=== PATIENT | female | born 2000 | race Caucasian/White ===

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

== ENCOUNTER 2024-02-14 02:47 | Emergency (ER) | payer BC ==
[2024-02-14] MEDS ORDERED: CEFTRIAXONE 1000 MG/VIAL ONE (03:54)
[2024-02-14] MEDS ORDERED: ACETAMINOPHEN 500 MG TAB ONE (03:55)
[2024-02-14] MEDS ORDERED: NA CHLORIDE 0.9% 1,000 ML ONE (03:55)
[2024-02-14] MEDS ORDERED: ONDANSETRON 4 MG/2 ML VIAL ONE (04:27)
[2024-02-14] MEDS ORDERED: MORPHINE 4 MG/ML SYR ONE (04:28)
[2024-02-14 04:56] LABS: Absolute Eosinophils 0.1 K/uL (0-0.5); Absolute Lymphocytes (CBC) 0.3 K/uL (0.7-4.9); Absolute Monocytes 0.8 K/uL (0.1-1.3); Absolute Neutrophil 4.4 K/uL (1.8-8.0); Basophils % 0.8 % (0-1.3); Eosinophils % 1.9 % (0-4.4); Hematocrit 37.3 % (36.0-45.0); Hemoglobin 12.2 g/dL (12.0-15.0); Lymphocytes % 5.7 % (15.3-44.8); MCH 28.3 pg (27.0-35.0); MCHC 32.8 g/dL (32.0-36.0); MCV 86.3 fL (80-100); MPV 8.5 fL (7.6-11.3); Monocytes % 13.9 % (3.3-12.3); Neutrophils % 77.7 % (41.7-73.7); Platelets 216 thou/uL (152-406); RBC Red Blood Cell Count 4.33 M/uL (3.86-4.86); Red Cell Distribution Width 13.3 % (12.1-15.2)
[2024-02-14 04:59] LABS: PT Prothrombin Time 13.2 SECONDS (9.5-12.5); PTT, Activated Partial Thromb 32.5 SECONDS (24.3-36.9); Protime INR 1.21
[2024-02-14 05:05] LABS: Specific Gravity 1.015 (1.005-1.030); Sqamous Epithelial <5 /HPF (None Seen); Urine Bacteria None Seen /HPF (<20); Urine Bilirubin NEGATIVE (Negative); Urine Blood Negative (Negative); Urine Clarity Clear (Clear); Urine Color Light-Yellow (Yellow); Urine Culture Reflex Order NOT NEEDED; Urine Glucose NEGATIVE (Negative); Urine Ketones NEGATIVE (Negative); Urine Microscopic Reflex YN ORDER UMIC; Urine Mucus Slight /HPF (None Seen); Urine Nitrite NEGATIVE (Negative); Urine Protein NEGATIVE (Negative); Urine RBC <5 /HPF (None Seen); Urine Urobilinogen Normal (Normal); Urine WBC <5 /HPF (<5)
[2024-02-14 05:18] LABS: ALT/SGPT 18 U/L (13-56); Albumin 3.6 g/dL (3.4-5.0); Albumin/Globulin Ratio 1.1 (1.1-1.8); Alkaline Phosphatase 55 U/L (45-117); Anion Gap 10.5 mEq/L (5.0-15.0); BUN Blood Urea Nitrogen 13 mg/dL (7-18); Bicarbonate 24 mEq/L (21-32); Bilirubin Total 0.5 mg/dL (0.2-1.0); Globulin 3.4 g/dL (2.3-3.5); Glomerular Filtration Rate 93 ml/min (=/>90); Glucose Level 109 mg/dL (74-106); Potassium 3.5 mEq/L (3.5-5.1); Sodium Level 136 mEq/L (136-145)
[2024-02-14 05:22] LABS: AST/SGOT < 10 U/L (15-37)
--- NOTE | 2024-02-14 05:47 | EDPHYS ---
Physician Documentation [facility] Name: Curt Delgado Age: 23 yrs Sex: Female : 2000 Arrival Date: 02/14/2024 Time: 02:47 Bed 2 Private MD: ED Physician Jonathan Walls HPI: 02/13 04:11 This 23 yrs old Female presents to ER via Ambulatory with complaints of Low ec2 Back Pain, Fever. 04:11 Patient arrives today for evaluation of lower back pain as well as fever. Patient ec2 reports that she has been experiencing fever since this afternoon. Patient reports some nausea, no vomiting. Denies any periods abdominal surgeries, denies any previous cough or cold symptoms, no urinary complaints.. 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 - Infectious Disease History:: Denies. - Social history:: Smoking status: Patient denies any tobacco usage or history of. ROS: 04:11 Constitutional: as per hpi ec2 Exam: 04:11 Constitutional: GEN: NAD Head: atraumatic Eyes: EOMI Ears: External ears are ec2 normal. CV: Tachycardia LUNGS: no respiratory distress ABD: non-distended, soft, nontender, no guarding, not rigid, negative flanks bilaterally. SKIN: no evidence of rashes MSK: no evidence of trauma NEURO: moves all extremities equally Vital Signs: 03:35 BP 114 / 72; Pulse 100; Resp 18; Temp 100.6; Pulse Ox 98% ; Weight 62.6 kg; Height 5 bm8 ft. 0 in. ; Pain 7/10; 04:30 BP 102 / 59; Pulse 80; ec2 04:42 BP 111 / 70; Pulse 86; Resp 15; Pulse Ox 96% on R/A; kd3 04:58 BP 111 / 65; Pulse 73; Resp 16; Temp 98.7; Pulse Ox 98% ; Pain 0/10; bm8 06:04 BP 110 / 59; Pulse 75; Resp 17; Temp 98.7; Pulse Ox 98% ; Pain 2/10; bm8 03:35 Body Mass Index 26.95 (62.60 kg, 152.4 cm) bm8 03:35 Pain Scale: Adult bm8 04:58 Pain Scale: Adult bm8 06:04 Pain Scale: Adult bm8 Elsy Coma Score: 06:04 Eye Response: spontaneous(4). Motor Response: obeys commands(6). Verbal Response: bm8 oriented(5). Total: 15. MDM: 03:12 Patient medically screened. ec2 04:11 Data reviewed: vital signs. ED course: Patient arrives today for evaluation of low back ec2 pain and fever. Examination remarkable for well-appearing nontoxic and appears otherwise in no acute distress with slight tachycardia as well as fever appreciated. Will obtain septic workup, empirically treat with ceftriaxone for urinary tract pathology. Differential diagnosis include UTI, pyelonephritis, appendicitis. Will also obtain CT imaging.. 04:30 ED course: On reassessment patient with improvement in her tachycardia.. ec2 05:08 ED course: Urine is noninfectious appearing, negative for .. ec2 05:26 ED course: Metabolic profile is reassuring, lactic is undetectable. Pending CT imaging. ec2 . 05:35 ED course: On reassessment patient with marked improvement in pain.. ec2 05:45 ED course: CT imaging shows nonspecific enteritis. On reassessment patient is ec2 comfortable and well-appearing no acute distress. Will discharge home. Return precautions given.. 02/13 03:39 Order name: Blood Culture Adult (2) ec2 02/13 03:39 Order name: CBC with Diff; Complete Time: 05:17 ec2 02/13 03:39 Order name: CMP; Complete Time: 05:26 ec2 02/13 03:39 Order name: Lactate w/ 2H reflex if indic.; Complete Time: 05:26 ec2 02/13 03:39 Order name: Protime (+inr); Complete Time: 05:01 ec2 02/13 03:39 Order name: Ptt, Activated; Complete Time: 05:01 ec2 02/13 03:39 Order name: Urinalysis w/ reflexes; Complete Time: 05:08 ec2 02/13 03:39 Order name: Test, Urine; Complete Time: 05:08 ec2 02/13 04:11 Order name: CT Abd/Pelvis - Without Contrast 2 02/13 03:39 Order name: Accucheck; Complete Time: 03:46 02/13 03:39 Order name: Cardiac monitoring; Complete Time: 03:46 02/13 03:39 Order name: EKG - Nurse/Tech; Complete Time: 03:46 02/13 03:39 Order name: IV Saline Lock - Large Bore; Complete Time: 03:46 02/13 03:39 Order name: Labs collected and sent; Complete Time: 03:46 02/13 03:39 Order name: O2 Per Protocol; Complete Time: 03:46 02/13 03:39 Order name: O2 Sat Monitoring; Complete Time: 03:46 02/13 03:39 Order name: Vital Signs; Complete Time: 03:46 Administered Medications: 03:59 Drug: Acetaminophen PO 1000 mg PO once Route: PO; bm8 04:58 Follow up: Response: No adverse reaction bm8 03:59 Drug: NS 0.9% IV 1000 ml IV at 1 bolus Per protocol; 1000 mL bolus Route: IV; Rate: 1 bm8 bolus; Site: right antecubital; 04:57 Follow up: Response: No adverse reaction; IV Status: Completed infusion; IV Intake: bm8 1000ml 04:34 Drug: Ondansetron IVP 4 mg IVP once; over 2 minutes Route: IVP; Site: right antecubital;kd3 04:57 Follow up: Response: No adverse reaction bm8 04:35 Drug: Rocephin IV 1 grams IV at calculated rate once; Given slow IV push per pharmacy kd3 instructions Route: IV; Rate: calculated rate; Site: left antecubital; 04:57 Follow up: Response: No adverse reaction; IV Status: Completed infusion; IV Intake: [id number] 04:35 Drug: morphine IVP or IV 4 mg IVP once over 4 mins Route: IVP; Infused Over: 4 mins; kd3 Site: left antecubital; 04:57 Follow up: Response: No adverse reaction bm8 06:04 Drug: HYDROcodone-acetaminophen PO 5 mg-325 mg 1 tabs PO once Route: PO; bm8 06:04 Follow up: Response: Medication administered at discharge. bm8 Disposition Summary: 02/14/24 05:46 Discharge Ordered Notes: Location: Home ec2 Condition: Stable ec2 Diagnosis - Other viral enteritis ec2 Followup: ec2 - With: Private Physician - When: - Reason: Re-evaluation by your physician Discharge Instructions: - Discharge Summary Sheet ec2 - Viral Gastroenteritis, Adult, [id number] ec2 Forms: - Work release form ec2 - Medication Reconciliation Form ec2 - Antibiotic Education ec2 - Prescription Opioid Use ec2 - Patient Portal Instructions ec2 - Leadership Thank You Letter ec2 Prescriptions: - Zofran 4 mg Oral Tablet - take 1 tablet ORAL route every 12 hours As needed; 20 tablet; Refills: 0, ec2 Product Selection Permitted - dicyclomine 10 mg Oral capsule - take 1 capsule ORAL route 3 times per day; 30 capsule; Refills: 0, Product ec2 Selection Permitted Signatures: Dispatcher [employer] Marilyn Maria, RN RN kd3 Jonathan Walls MD MD ec2 Jonathan Enamorado RN RN bm8 Corrections: (The following items were deleted from the chart) 03:39 03:39 BLOOD CULTURE*+BA.LAB.BRZ ordered. EDMS EDMS 03:39 03:39 CBC+H.LAB.BRZ ordered. EDMS EDMS 03:39 03:39 COMPREHENSIVE METABOLIC PANEL+C.LAB.BRZ ordered. EDMS EDMS 03:39 03:39 LACTATE+C.LAB.BRZ ordered. EDMS EDMS 03:39 03:39 PROTIME (+INR)+COAG.LAB.BRZ ordered. EDMS EDMS 03:39 03:39 PTT, ACTIVATED+COAG.LAB.BRZ ordered. EDMS EDMS 03:39 03:39 Urinalysis+U.LAB.BRZ ordered. EDMS EDMS 03:39 03:39 Test, Urine+UC.LAB.BRZ ordered. EDMS EDMS 04:11 04:11 Abdomen Pelvis Wo Con+CT.RAD.BRZ ordered. EDMS EDMS
--- NOTE | 2024-02-14 05:47 | ER ---
Nurse's Notes [facility] Name: Curt Delgado Age: 23 yrs Sex: Female : 2000 Arrival Date: 02/14/2024 Time: 02:47 Bed 2 Private MD: Diagnosis: Other viral enteritis Presentation: 02/13 03:35 Chief complaint: Patient states: I have lower back that started around 1230 this bm8 afternoon, now i have fever and headache. Coronavirus screen: Vaccine status: Patient reports receiving the 2nd dose of the covid vaccine. Ebola Screen: Patient negative for fever greater than or equal to 101.5 degrees Fahrenheit, and additional compatible Ebola Virus Disease symptoms Patient denies exposure to infectious person. Patient denies travel to an Ebola-affected area in the 21 days before illness onset. No symptoms or risks identified at this time. Initial Sepsis Screen: Does the patient meet any 2 criteria? No. Patient's initial sepsis screen is negative. Does the patient have a suspected source of infection? No. Patient's initial sepsis screen is negative. Risk Assessment: Do you want to hurt yourself or someone else? Patient reports no desire to harm self or others. Onset of symptoms was February 13, 2024 at 12:30. 03:35 Method Of Arrival: Ambulatory bm8 03:35 Acuity: LEODAN 3 bm8 Triage Assessment: 03:41 General: Appears in no apparent distress. comfortable, Behavior is calm, cooperative. bm8 Pain: Complains of pain in lower back Pain does not radiate. EENT: No deficits noted. No signs and/or symptoms were reported regarding the EENT system. Neuro: No deficits noted. Level of Consciousness is awake, alert, obeys commands, Oriented to person, place, time, situation. Cardiovascular: No deficits noted. Capillary refill < 3 seconds Patient's skin is warm and dry. Respiratory: Airway is patent Trachea midline Respiratory effort is even, unlabored, Respiratory pattern is regular, symmetrical, Breath sounds are clear bilaterally. GI: No deficits noted. No signs and/or symptoms were reported involving the gastrointestinal system. : No signs and/or symptoms were reported regarding the genitourinary system. Derm: No signs and/or symptoms reported regarding the dermatologic system. Musculoskeletal: No signs and/or symptoms reported regarding the musculoskeletal system. 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 - Infectious Disease History:: Denies. - Social history:: Smoking status: Patient denies any tobacco usage or history of. Screenin:44 [facility] ED Fall Risk Assessment (Adult) History of falling in the last 3 months, bm8 including since admission No falls in past 3 months (0 pts) Confusion or Disorientation No (0 pts) Intoxicated or Sedated No (0 pts) Impaired Gait No (0 pts) Mobility Assist Device Used No (0 pt) Altered Elimination No (0 pt) Score/Fall Risk Level 0 - 2 = Low Risk Oriented to surroundings, Maintained a safe environment, Educated pt \T\ family on fall prevention, incl call for assistance when getting out of bed. Abuse screen: Denies threats or abuse. Nutritional screening: No deficits noted. Tuberculosis screening: No symptoms or risk factors identified. Assessment: 03:44 Reassessment: see triage assessment. bm8 05:00 Reassessment: Patient appears in no apparent distress at this time. Patient and/or bm8 family updated on plan of care and expected duration. Pain level reassessed. Patient is alert, oriented x 3, equal unlabored respirations, skin warm/dry/pink. Patient denies pain at this time. Patient states feeling better. 06:04 Reassessment: Patient appears in no apparent distress at this time. Patient and/or bm8 family updated on plan of care and expected duration. Pain level reassessed. Patient is alert, oriented x 3, equal unlabored respirations, skin warm/dry/pink. Patient denies pain at this time. Patient states feeling better. Patient states symptoms have improved. Vital Signs: 03:35 BP 114 / 72; Pulse 100; Resp 18; Temp 100.6; Pulse Ox 98% ; Weight 62.6 kg; Height 5 bm8 ft. 0 in. ; Pain 7/10; 04:30 BP 102 / 59; Pulse 80; ec2 04:42 BP 111 / 70; Pulse 86; Resp 15; Pulse Ox 96% on R/A; kd3 04:58 BP 111 / 65; Pulse 73; Resp 16; Temp 98.7; Pulse Ox 98% ; Pain 0/10; bm8 06:04 BP 110 / 59; Pulse 75; Resp 17; Temp 98.7; Pulse Ox 98% ; Pain 2/10; bm8 03:35 Body Mass Index 26.95 (62.60 kg, 152.4 cm) bm8 03:35 Pain Scale: Adult bm8 04:58 Pain Scale: Adult bm8 06:04 Pain Scale: Adult bm8 Moffett Coma Score: 06:04 Eye Response: spontaneous(4). Motor Response: obeys commands(6). Verbal Response: bm8 oriented(5). Total: 15. ED Course: 02:49 Patient arrived in ED. jj6 03:12 Jonathan Walls MD is Attending Physician. ec2 03:37 Triage completed. bm8 03:41 Arm band placed on right wrist. Patient placed in an exam room, on a stretcher, on bm8 environmental monitoring specialist, on pulse oximetry. 03:44 Patient has correct armband on for positive identification. Bed in low position. Call bm8 light in reach. Side rails up X 1. Adult w/ patient. Client placed on continuous cardiac and pulse oximetry monitoring. NIBP monitoring applied. gambling monitor on. Pulse ox on. NIBP on. Door closed. Noise minimized. Visitors limited. Verbal reassurance given. Head of bed elevated. 03:44 No provider procedures requiring assistance completed. bm8 03:53 Mo Dow, RN is Primary Nurse. jb4 04:00 Inserted saline lock: 22 gauge in right antecubital area, using aseptic technique. bm8 Blood collected. 04:00 Initial lab(s) drawn, by ED staff, sent to lab. First set of blood cultures drawn Urine bm8 collected: clean catch specimen, clear, EKG done, by ED staff, reviewed by Jonathan Walls MD. 05:24 CT Abd/Pelvis - Without Contrast In Process Unspecified. EDMS 06:04 Provided Education on: post er care. bm8 06:06 IV discontinued, intact, bleeding controlled, No redness/swelling at site. Pressure bm8 dressing applied. Administered Medications: 03:59 Drug: Acetaminophen PO 1000 mg PO once Route: PO; bm8 04:58 Follow up: Response: No adverse reaction bm8 03:59 Drug: NS 0.9% IV 1000 ml IV at 1 bolus Per protocol; 1000 mL bolus Route: IV; Rate: 1 bm8 bolus; Site: right antecubital; 04:57 Follow up: Response: No adverse reaction; IV Status: Completed infusion; IV Intake: bm8 1000ml 04:34 Drug: Ondansetron IVP 4 mg IVP once; over 2 minutes Route: IVP; Site: right antecubital;kd3 04:57 Follow up: Response: No adverse reaction bm8 04:35 Drug: Rocephin IV 1 grams IV at calculated rate once; Given slow IV push per pharmacy kd3 instructions Route: IV; Rate: calculated rate; Site: left antecubital; 04:57 Follow up: Response: No adverse reaction; IV Status: Completed infusion; IV Intake: [id number] 04:35 Drug: morphine IVP or IV 4 mg IVP once over 4 mins Route: IVP; Infused Over: 4 mins; kd3 Site: left antecubital; 04:57 Follow up: Response: No adverse reaction bm8 06:04 Drug: HYDROcodone-acetaminophen PO 5 mg-325 mg 1 tabs PO once Route: PO; bm8 06:04 Follow up: Response: Medication administered at discharge. bm8 Medication: 03:44 VIS not applicable for this client. bm8 Intake: 04:57 IV: 1000ml; Total: 1000ml. bm8 04:57 IV: 10ml; Total: 1010ml. bm8 Outcome: 05:46 Discharge ordered by . ec2 06:04 Discharged to home ambulatory, with family, bm8 06:04 Condition: stable 06:04 Discharge instructions given to patient, family, Instructed on discharge instructions, follow up and referral plans. no drinking with medication, medication usage, safety practices, Demonstrated understanding of instructions, follow-up care, medications, Prescriptions given X 2, 06:06 Patient left the ED. bm8 Signatures: Dispatcher [employer] Mo Ratliff, RN RN jb4 Elvie Rangel jj6 Marilyn Trevizo RN RN kd3 Jonathan Walls MD MD ec2 Jonathan Enamorado RN RN bm8
[2024-02-14] MEDS ORDERED: HYDROCODONE/APAP 5/325 MG TAB ONE (06:01)
[2024-02-14 06:27] VITALS: BP 110/59; TEMP 98.7; O2SAT 98
--- NOTE | 2024-02-14 12:00 | RAD REPORT ---
EXAM DESCRIPTION: CT - Abdomen Pelvis Wo Contrast - 02/14/2024 6:34 am CLINICAL HISTORY: Abd/back pain COMPARISON: None Available. TECHNIQUE: CT of the abdomen and pelvis without IV contrast. Evaluation of the solid organs and vasc ulature is suboptimal due to lack of IV contrast. This exam was performed according to our department al dose-optimization program, which includes automated exposure control, adjustment of the mA and/or kV according to patient size and/or use of iterative reconstruction technique. FINDINGS: Lung Bases: The visualized lung bases are clear. Bones: No acute osseous abnormality identified. Abdomen: Liver: The liver has normal size and density. Gallbladder: No calcified gallstones. Spleen, Pancreas, and Adrenal Glands: The spleen, pancreas, and adrenal glands are unremarkable. Kidneys: No hydronephrosis or obstructing ureteral calculi. Vasculature: The aorta and IVC have normal caliber and position. Stomach: The stomach and duodenum have normal course. Other: No free intraperitoneal air. Shotty mesenteric lymph nodes. Pelvis: Bladder: Urinary bladder is unremarkable. Bowel: No dilated loops of large or small bowel. Moderate amount of stool. Mild wall thickening of the proximal small bowel. Appendix: Normal appendix. Pelvis: Uterus is not enlarged. IMPRESSION: Mild wall thickening of the proximal small bowel. These findings could be seen with nons pecific enteritis. Electronically signed by: Efren Yu DO 02/14/2024 05:40 AM CDT RP [id number] Due to temporary technical issues with the PACS/Fluency reporting system, reports are being signed by the in house radiologists without review as a courtesy to insure prompt reporting. The interpreting radiologist is fully responsible for the content of the report
--- NOTE | 2024-02-14 14:10 | EKG ---
Test Date: 2024-02-14 Test Time: 03:50:54 Journeyman Patternmaker: DANIEL MEASUREMENT RESULTS: Intervals: Rate: 95 ME: 134 QRSD: 72 QT: 334 QTc: 419 [place]: P: 71 ME: 134 QRS: 23 T: 41 INTERPRETIVE STATEMENTS: Normal sinus rhythm Normal ECG No previous ECG available for comparison Electronically Signed On 02-14-24 14:09:28 CDT by Eh Bee
== END 2024-02-14 06:06 | disposition home or self-care (01) ==
LOC: ER 02:47
DX: K52.89 Other specified noninfective gastroenteritis and colitis (principal); M54.50 Low back pain, unspecified
CPT/HCPCS: 93005; 87040 ×2; 85025; 81001; 36415; 81025; 85610; 83605; 85730; 80053; 74176; 99285; J2405; J7030; J0696